=== PATIENT | male | born 1975 | race Caucasian/White ===

== ENCOUNTER 2022-09-23 05:48 | Emergency (ER) | payer OTHER, SELFPAY ==
[2022-09-23 06:11] VITALS: BP 126/80; PULSE 63; RESP 16; TEMP 36.1; O2SAT 99; BMI 32.1
[2022-09-23 06:42] VITALS: BP 112/75; PULSE 59; RESP 16; TEMP 36.9; O2SAT 97
--- NOTE | 2022-09-23 07:54 | ED.EYEPROB ---
HPI - Eye Problem General Chief complaint: Eye Problems Stated complaint: Right eye infection? Time Seen by Provider: 09/23/22 07:02 Source: patient Mode of arrival: ambulatory History of Present Illness HPI Narrative: 47-year-old male states he was mowing the lawn yesterday when something flew into his eye and states he has had worsening irritation with significant eye tearing today but was unable to visualize any obvious object. He denies any blurred or double vision. Related Data Previous Rx's Medication Instructions Recorded erythromycin 5 mg/gram (0.5 %) eye 0.5 inch ophthalmic (eye) QID 5 09/23/22 ointment days #50 grams Allergies Allergy/AdvReac Type Severity Reaction Status Date / Time acetaminophen [From TYLENOL] Allergy Intermediate UNKNOWN Unverified 12/23/19 17:42 Review of Systems Review of Systems: Pertinent positives and negatives as stated in [facility] Past Medical History Source: nursing notes reviewed Social History Social History Smoked in Last 30 Days: No Use of substances other than those prescribed or required for medical reasons: No Advance Directives: No Advance Directives Information Provided: No Physical Exam Vital Signs: Vital Signs: Last Vital Signs Temp 98.5 F 09/23/22 06:42 Pulse 59 09/23/22 06:42 Resp 16 09/23/22 06:42 BP 112/75 09/23/22 06:42 Pulse Ox 97 09/23/22 06:42 O2 Del Method Room Air 09/23/22 06:42 BMI result Body Mass Index 32.1 VITAL SIGNS: Reviewed. GENERAL: Well developed, well nourished, in no acute distress. HEAD: Normocephalic/atraumatic EYES: PERRLA, EOMI, mildly erythematous conjunctival injection, no obvious foreign body EARS: Ext canals without abnormality NOSE: Nares patent bilateral OROPHARYNX: no oral lesions noted, posterior pharynx clear NECK: Supple, no adenopathy LUNGS: Normal breath sounds. No adventitious sounds or accessory muscle use. SpO2<97> CARDIOVASCULAR: Regular rate and rhythm without noted murmurs ABDOMEN: Soft, non-tender, non-distended with bowel sounds. MUSCULOSKELETAL: No tenderness, deformities, or effusions noted on gross inspection. EXTREMITIES: No cyanosis, clubbing or edema. SKIN: Inspection of the skin reveals no rashes NEUROLOGIC: Alert and oriented x 4. Strength and sensation to light touch were grossly intact x 4. Medications Administered Discontinued Medications Generic Name Dose Route Start Last Admin Trade Name Daphne PRN Reason Stop Dose Admin Fluorescein Sodium 1 strip 09/23/22 07:26 09/23/22 08:01 Fluorescein Sodium Strip EYE-RIGHT 09/23/22 07:27 1 strip ONCE ONE Administration Tetracaine HCl 1 drop 09/23/22 07:26 09/23/22 08:01 Tetracaine Hcl/Pf 0.5% Oph Divya 4 Ml Drops EYE-RIGHT 09/23/22 07:27 1 drop ONCE ONE Administration Medical Decision Making Medical Decision Making MDM Narrative: 47-year-old male with history and clinical presentation consistent with foreign body in the eye at some point, will evaluate for corneal abrasion and foreign body. 0825: Fluorescein exam demonstrate multiple foreign bodies within the right eye, the most relevant 1 is located at the 5 o'clock position in the lower medial aspect with associated corneal abrasion. I have contacted Ophthalmology to arrange for I suspect that Dr. Del Cid is in the operating room today, will send patient for follow-up, suspect that these are wood particles within his eye and will not attempt to extract at this time, but will place on erythromycin and instruct patient to follow-up with ophthalmology. Patient received Tdap in the emergency room. Differential Diagnosis Please see the discussion above Discharge Plan Discharge Clinical Impression: Corneal abrasion, Foreign body in eye, Iritis Patient Disposition: Home, Self-Care Instructions: Iritis (ED), Corneal Abrasion (ED), Eye Foreign Body (ED) Additional Instructions: Follow-up with ophthalmology either on your own today with any fire equipment inspector/film printer that is open. Please complete the antibiotics and use them until your further evaluated by Ophthalmology/Optometry. I have given you a referral to follow-up with our fire equipment inspector, call the office today, you may be able to be seen later this afternoon or 1st thing tomorrow. Prescriptions: New erythromycin 5 mg/gram (0.5 %) ointment 0.5 inch ophthalmic (eye) QID 5 Days Qty: 50 0RF Referrals: Koffi Del Cid [Physician] - (Multiple foreign body, corneal abrasion) Stand Alone Forms: Work/School Release
[2022-09-23] MEDS: Tetracaine HCl/PF 0.5% Oph Sol 4 ML DROPS 1 DROP EYE-RIGHT (08:01)
[2022-09-23] MEDS: Fluorescein Sodium STRIP 1 STRIP EYE-RIGHT (08:01)
[2022-09-23] MEDS: Erythromycin Base 0.5% Oph Oin 1 GM TUBE 1 CM EYE-RIGHT (09:16)
[2022-09-23] MEDS: Diphth,Pertus(ACell),Tet Adult 0.5 ML SYRINGE IM (09:17)
--- NOTE | 2022-09-23 09:19 | PC.NURSE ---
Alert and oriented, verbalized discharge instruction to follow up with opthmologist
== END 2022-09-23 09:26 | disposition home or self-care (01) ==
PROVIDERS: Emergency Provider Student in an Organized Health Care Education/Training Program
DX: T15.01XA Foreign body in cornea, right eye, initial encounter (principal); H57.11 Ocular pain, right eye; X58.XXXA Exposure to other specified factors, initial encounter; Y93.9 Activity, unspecified; Y92.9 Unspecified place or not applicable; Y99.9 Unspecified external cause status; Z23 Encounter for immunization; Z79.899 Other long term (current) drug therapy
CPT/HCPCS: 90471; 90715; 99284

== ENCOUNTER → 2023-11-25 08:10 | Outpatient (BNVA) | payer OTHER, SELFPAY | PROVIDERS: Visit Provider Registered Nurse | DX: S80.12XA Contusion of left lower leg, initial encounter (principal); S20.219A Contusion of unspecified front wall of thorax, initial encounter; S40.012A Contusion of left shoulder, initial encounter; W13.2XXA Fall from, out of or through roof, initial encounter | CPT/HCPCS: 71111; 73552; 99204 ==

== ENCOUNTER → 2023-11-28 08:18 | Outpatient (BNVA) | payer OTHER, SELFPAY | PROVIDERS: Visit Provider Registered Nurse | DX: S20.212A Contusion of left front wall of thorax, initial encounter (principal); S40.012A Contusion of left shoulder, initial encounter; S80.12XA Contusion of left lower leg, initial encounter; W13.2XXA Fall from, out of or through roof, initial encounter | CPT/HCPCS: 99213 ==

== ENCOUNTER 2024-02-09 17:54 | Emergency (ER) | payer OTHER, SELFPAY ==
--- NOTE | ~2024-02-09 | XR_ITS ---
EXAMINATION: XR tibia fibula LT 2V CLINICAL INFORMATION: left anteiror leg ulcer redness. COMPARISON: None. TECHNIQUE: AP, lateral, and oblique views of the FINDINGS: * No acute fracture or dislocation. * Joint spaces are maintained without significant degenerative change. * No soft tissue abnormality. XR/XR tibia fibula LT 2V IMPRESSION: No acute fracture or dislocation. No radiographic findings of osteomyelitis. If there is concern, MRI is more sensitive study. Electronically signed by: Zahra Latif MD 02/09/2024 07:40 PM EST [facility]
[2024-02-09 18:18] VITALS: BP 162/84; PULSE 81; RESP 20; TEMP 37.1; O2SAT 100; BMI 29.3
--- NOTE | 2024-02-09 18:27 | ED_ITS ---
HPI - General Adult General Chief complaint: Skin/Abscess/Foreign Body Stated complaint: left leg skin wound Time Seen by Provider: 02/09/24 23:53 Source: patient Mode of arrival: ambulatory Limitations: no limitations History of Present Illness ED Provider: Dr. Nyasia Thompson HPI narrative: Patient comes to the emergency room complaining of a lesion on the left randle that is accumulating pus superficially. Patient states that it started today. Patient does not remember any injuries. Patient states that he has multiple of these lesions throughout his body that he has been dealing with for several years. However, patient became concerned about the pus collection. Patient denies fever chills. Related Data Previous Rx's ?Medication ?Instructions ?Recorded erythromycin 5 mg/gram (0.5 %) eye 0.5 inch ophthalmic (eye) QID 5 09/23/22 ointment days #50 grams cyclobenzaprine 10 mg tablet 10 mg PO BEDTIME PRN muscle spasm 11/25/23 #5 tabs cephalexin 500 mg capsule 500 mg PO BID #20 caps 02/10/24 doxycycline hyclate 100 mg tablet 100 mg PO BID #20 tabs 02/10/24 ibuprofen 600 mg tablet 600 mg PO Q8H PRN fever or pain 02/10/24 #20 tabs Allergies Allergy/AdvReac Type Severity Reaction Status Date / Time acetaminophen [From TYLENOL] Allergy Intermediate UNKNOWN Verified 02/09/24 18:25 Review of Systems 2 Review of Systems: Constitutional : No Weight loss, No Fever, No Chills, No Night Sweats, No Fatigue, No Malaise ENT/Mouth : No Hearing loss, No Ear Pain, No Nasal Congestion, No Sinus Pain, No Hoarseness, No sore throat, No Rhinorrhea, No Swallowing Difficulty Eyes: No Eye Pain, No Swelling, No Redness, No Foreign Body, No Discharge, No Vision Changes Cardiovascular : No Chest Pain, No SOB, No Dyspnea on Exertion, No Orthopnea, No Edema, No Palpitations Respiratory : No Cough, No Sputum, No Wheezing, No Smoke Exposure, No Dyspnea Gastrointestinal : No Nausea, No Vomiting, No Diarrhea, No Constipation, No abdominal Pain, No Hematochezia, No Melena Genitourinary : no irregular bleeding, No Dysuria, No Urinary Frequency, No Hematuria, No Urinary Incontinence, No Urgency, No Flank Pain, No Urinary Flow Changes, No Hesitancy Musculoskeletal : No joint pain, No Myalgias, No Joint Swelling Skin : Several skin lesions, intermittent, currently 1 on the left randle Neuro : No Weakness, No Numbness, No Paresthesias, No Loss of Consciousness, No Dizziness, No Headache Psych : No Anxiety/Panic, No Depression, No SI/HI/AH/VH, No Social Issues, Heme/Lymph: No Bruising, No Bleeding,No Lymphadenopathy Endocrine : No Polyuria, No Polydipsia, No Temperature Intolerance PMFSH Social History Social History Advance Directives: No Advance Directives Information Provided: No Physical Exam ED Vital Signs: Vital Signs - 24 hr 02/09/24 18:18 02/09/24 20:46 02/10/24 00:37 Temperature 98.7 F 98.3 F 98.3 F Pulse Rate 81 71 71 Respiratory Rate 20 19 19 Blood Pressure 162/84 H 137/90 H 137/90 H Pulse Oximetry 100 97 97 Oxygen Delivery Method Room Air Room Air Room Air BMI result Body Mass Index 29.3 Const Other: Appearance: Alert. Oriented X3. No acute distress. Eyes: Pupils equal, round and reactive to light. ENT: Pharynx normal. Neck: Normal inspection. Neck supple. No lymph nodes noted. No crepitus CVS: Normal heart rate and rhythm. Pulses normal. Normal S1 and S2 Respiratory: No respiratory distress. Breath sounds normal. No Wheezing. No rales Abdomen: Soft and nontender. No rigidity. No distention. Skin: Skin warm and dry. Normal skin color. Normal skin turgor. On the left randle, there is a 2 cm x 2 cm nodule lesion on the randle, small pocket of pus superficially. Extremities: No lower extremity edema. No Lacerations. No Rash Neuro: Oriented X 3. No motor deficit. No sensory deficit. Moving all extremities. No slurred speech. CN 2 through 12 grossly intact Psych: calm, cooperative, normal affect Course Course Course Narrative: RME: done by REGINALDO Aguilar. 48-year-old male presents to ED left anterior leg randle hotness redness with ulcerated wound. Patient has ulcers elsewhere in his body, but those are healing as per patient. Patient denies any IV drug use or history of HIV. Leg x-ray labs ordered. Negative for calf pain. Medications Administered Discontinued Medications Generic Name Dose Route Start Last Admin Trade Name Daphne PRN Reason Stop Dose Admin Cephalexin HCl 500 mg 02/10/24 00:09 02/10/24 00:35 Cephalexin 500 Mg Capsule PO 02/10/24 00:10 500 mg ONCE ONE Administration Doxycycline Monohydrate 100 mg 02/10/24 00:09 02/10/24 00:35 Doxycycline Monohydrate 100 Mg Capsule PO 02/10/24 00:10 100 mg ONCE ONE Administration Medical Decision Making Medical Decision Making [facility] Narrative: Patient denies IV drug use, denies having HIV. Patient states that for several years he has had intermittent lesions throughout his body. This time he became concerned about the erythema and the small pus pocket. Patient states that he has never had antibiotics for this lesions, he used yells with them, go away and then they pop somewhere else. -patient was given p.o. Keflex and doxycycline. -the blister filled with pus was lanced with a 18 gauge needle, small amount of pus was extracted. -x-ray of vision does not show any signs of osteomyelitis. The lesions do not seem to go deep. -discussed with the patient that he needs to follow-up with his PCP, it is possible that patient may have an autoimmune disorder. Differential Diagnosis Differential Diagnoses: The differential diagnosis associated with the presentation includes (MSSA, MRSA, erythema nodosum) Lab Data [facility] Lab Attestation statement: I reviewed the patient's lab results. 02/09/24 20:05 02/09/24 20:05 Labs: Lab Results 02/09/24 Range/Units 20:05 WBC 10.2 (4.8-10.8) X10*3/uL RBC 4.41 L (4.60-5.80) X10*6/uL Hgb 13.3 L (14.0-18.0) g/dl Hct 39.6 L (42.0-52.0) % MCV 89.8 (80.0-98.0) fL MCH 30.2 (27.0-33.0) pg MCHC 33.6 (31.0-36.0) g/dl RDW 12.4 (11.0-16.0) % Plt Count 265 (160-400) X10*3/uL MPV 8.4 L (9.4-12.4) fL Immature Gran % (Auto) 0.4 (0.0-0.4) % Neut % (Auto) 67.9 (45-73) % Lymph % (Auto) 19.9 L (20-40) % Miner % (Auto) 10.1 (2-11) % Eos % (Auto) 1.2 (0-4) % Baso % (Auto) 0.5 (0-2) % Lymph # (Auto) 2.0 (1.2-4.9) X10*3/uL Miner # (Auto) 1.0 (0.1-1.2) X10*3/uL Eos # (Auto) 0.1 (0.0-0.4) X10*3/uL Baso # (Auto) 0.1 (0.0-0.2) X10*3/uL Abs Immat Gran (auto) 0.04 H (0.00-0.03) X10*3/uL Absolute Neuts (auto) 7.0 (2.0-8.3) x10*3/uL Absolute Nucleated RBC 0.000 (0.0-0.012) X10*3/uL Nucleated RBC % (auto) 0.0 (0.0-0.2) /100WBC ESR 14 (0-15) MM/HR Sodium 143 (135-145) mmol/L Potassium 3.9 (3.3-5.1) mmol/L Chloride 107 (96-108) mmol/L Carbon Dioxide 24 (22-29) mmol/L Anion Gap 16 (12-20) BUN 14 (9-16) mg/dL Creatinine 1.03 (0.5-1.4) mg/dL Estim Creat Clear Calc 101.0 Estimated GFR > 60 Random Glucose 92 (60-115) mg/dL Calcium 9.7 (8.4-10.2) mg/dL Total Bilirubin 0.7 (0.0-1.0) mg/dL AST 17 (5-37) U/L ALT 32 (0-40) U/L Alkaline Phosphatase 58 (39-117) U/L C-Reactive Protein 2.98 H (< or = 0.50) mg/dL Total Protein 7.5 (6.5-8.0) g/dL Albumin 4.4 (3.5-5.0) g/dL Discharge Plan Discharge Clinical Impression: Cellulitis Patient Disposition: Home, Self-Care Instructions: Cellulitis (ED), Warm Compress or Soak (ED) Additional Instructions: Please follow-up with your primary care physician tomorrow. If you have any worsening or new symptoms, please return to the emergency room or call 911 Prescriptions: New doxycycline hyclate 100 mg tablet 100 mg PO BID Qty: 20 0RF cephalexin 500 mg capsule 500 mg PO BID Qty: 20 0RF ibuprofen 600 mg tablet 600 mg PO Q8H PRN (Reason: fever or pain) Qty: 20 0RF No Action erythromycin 5 mg/gram (0.5 %) ointment 0.5 inch ophthalmic (eye) QID 5 Days Qty: 50 0RF cyclobenzaprine 10 mg tablet 10 mg PO BEDTIME PRN (Reason: muscle spasm) Qty: 5 0RF Interventions: ED Discharge Assessment Last Done: 02/10/24 00:37 Discharge Date/Time: 02/10/24 00:38 Print Language: Citizen Of [place]
--- NOTE | 2024-02-09 19:31 | MHC.EDTECH ---
Called for pt in waiting room, no response at 19:25
[2024-02-09 20:11] LABS: MANUAL DIFF FLAG NO
[2024-02-09 20:12] LABS: Basophils Absolute Auto 0.1 X10*3/uL (0.0-0.2); Basophils Percent Auto 0.5 % (0-2); Eosinophils Absolute Auto 0.1 X10*3/uL (0.0-0.4); Eosinophils Percent Auto 1.2 % (0-4); Hematocrit 39.6 % (42.0-52.0); Hemoglobin 13.3 g/dl (14.0-18.0); Imm Gran Abs Auto 0.04 X10*3/uL (0.00-0.03); Imm Gran Pct Auto 0.4 % (0.0-0.4); Lymphocytes Percent Auto 19.9 % (20-40); Mean Corpuscular HGB Conc 33.6 g/dl (31.0-36.0); Mean Corpuscular Hemoglobin 30.2 pg (27.0-33.0); Mean Corpuscular Volume 89.8 fL (80.0-98.0); Mean Platelet Volume 8.4 fL (9.4-12.4); Monocytes Percent Auto 10.1 % (2-11); Neutrophils Percent Auto 67.9 % (45-73); Platelet Count 265 X10*3/uL (160-400); Red Blood Count 4.41 X10*6/uL (4.60-5.80); Red Cell Distribution Width 12.4 % (11.0-16.0); White Blood Count 10.2 X10*3/uL (4.8-10.8)
[2024-02-09 20:28] LABS: Alanine Aminotransferase 32 U/L (0-40); Albumin Level 4.4 g/dL (3.5-5.0); Alkaline Phosphatase 58 U/L (39-117); Anion Gap 16 (12-20); Aspartate Amino Transferase 17 U/L (5-37); Bilirubin Total 0.7 mg/dL (0.0-1.0); Blood Urea Nitrogen 14 mg/dL (9-16); C Reactive Protein 2.98 mg/dL (< or = 0.50); Calcium 9.7 mg/dL (8.4-10.2); Carbon Dioxide 24 mmol/L (22-29); Chloride 107 mmol/L (96-108); Estimated Glomerular Filt Rate > 60; Glucose Random 92 mg/dL (60-115); Potassium 3.9 mmol/L (3.3-5.1); Sodium 143 mmol/L (135-145); Total Protein 7.5 g/dL (6.5-8.0)
[2024-02-09 20:46] VITALS: BP 137/90; PULSE 71; RESP 19; TEMP 36.8; O2SAT 97
[2024-02-09 20:52] LABS: Erythrocyte Sedimentation Rate 14 MM/HR (0-15)
[2024-02-10] MEDS: cephALEXin 500 MG CAPSULE PO (00:35)
[2024-02-10] MEDS: Doxycycline Monohydrate 100 MG CAPSULE PO (00:35)
[2024-02-10 00:37] VITALS: BP 137/90; PULSE 71; RESP 19; TEMP 36.8; O2SAT 97
== END 2024-02-10 00:38 | disposition home or self-care (01) ==
PROVIDERS: Physician Assistant; Emergency Provider Emergency Medicine; PCP Internal Medicine
DX: L03.116 Cellulitis of left lower limb (principal); L98.9 Disorder of the skin and subcutaneous tissue, unspecified
CPT/HCPCS: 36415; 73590; 80053; 85025; 85652; 86140; 99283